=== PATIENT | female | born 1955 | race Asian ===

== ENCOUNTER 2017-12-01 05:47 | Inpatient (IN) | payer OTHER ==
[2017-12-01] MEDS: HIP PAIN COCKTAIL (CEFUROXIME) INJ ×2 (06:00→08:36)
[2017-12-01] MEDS: DEXAMETHASONE 4 MG/ML 1 ML INJ IV (06:27)
[2017-12-01] MEDS: ACETAMINOPHEN 1000MG/100ML IV 100 ML IVPB (06:27)
[2017-12-01] MEDS: ONDANSETRON 4 MG INJ IV ×6 (06:27→21:06)
[2017-12-01] MEDS: oxyCODONE (CR) 10 MG TAB [oxyCONTIN] PO (06:28)
[2017-12-01] MEDS: LACTATED RINGER'S 1,000 ML IV* (06:34)
[2017-12-01] MEDS: LANSOPRAZOLE 30 MG CAP PO (06:44)
[2017-12-01] MEDS ORDERED: HYDROmorphONE 1 MG/5 ML IV SYRINGE IV ×2 (07:30)
[2017-12-01] MEDS ORDERED: NALOXONE (0.4 MG/ML) INJ IV (07:30)
[2017-12-01] MEDS ORDERED: ALBUTEROL 0.083% (NEB) 2.5 MG/3 ML AMP HHN (07:30)
[2017-12-01] MEDS ORDERED: oxyCODONE 5 MG TAB PO (07:30)
[2017-12-01] MEDS ORDERED: METOCLOPRAMIDE 10 MG INJ IV (07:30)
[2017-12-01] MEDS ORDERED: DIPHENHYDRAMINE 50 MG INJ IV ×2 (07:30)
[2017-12-01] MEDS ORDERED: FENTAnyl 50 MCG/ML VIAL IV ×2 (07:30)
[2017-12-01] MEDS ORDERED: BETHANECHOL 25 MG TAB PO (07:30)
[2017-12-01] MEDS ORDERED: NA PHOSPHATE/BIPHOS 133 ML ENEMA PR (07:30)
[2017-12-01] MEDS ORDERED: SENNA/DOCUSATE NA (8.6MG/50MG) TAB PO (07:30)
[2017-12-01] MEDS ORDERED: morphine SULFATE/PF (10 MG/10 ML) INJ (07:33)
[2017-12-01] MEDS ORDERED: MIDAZOLAM 1 MG/ML 2 ML INJ (07:33)
[2017-12-01] MEDS ORDERED: BUPIVACAINE 0.75%/DEXT (SPINAL) 2 ML INJ (07:33)
[2017-12-01] MEDS ORDERED: PHENYLephrine (100 MCG/ML) 5ML SYG (07:48)
[2017-12-01] MEDS: CEFAZOLIN 2 GM/50 ML (PMX) 50 ML IVPB (07:51)
[2017-12-01] MEDS: TRANEXAMIC ACID 1,000 MG in NS 100 ML PRE-OP X1 IVPB (08:00)
[2017-12-01] MEDS ORDERED: SUCCINYLCHOLINE CHLORIDE 100 MG/5 ML SYG IV (08:01)
[2017-12-01] MEDS ORDERED: ROCURONIUM 50 MG INJ (08:01)
[2017-12-01] MEDS ORDERED: PROPOFOL 20 ML (08:01)
[2017-12-01] MEDS ORDERED: CEFAZOLIN 1 GM INJ (08:01)
[2017-12-01] MEDS ORDERED: SUGAMMADEX SODIUM 200 MG/2 ML VIAL IV (08:04)
[2017-12-01] MEDS ORDERED: LIDOCAINE 1% (MDV) 20 ML INJ (08:04)
[2017-12-01] MEDS: POLYMYXIN B 500000 UNIT INJ (08:36)
[2017-12-01] MEDS: BACITRACIN 50000 UNITS INJ IRR (08:36)
[2017-12-01] MEDS: TRANEXAMIC ACID 1,000 MG in NS 100 ML INTRA-OP X1 IVPB ×2 (08:38→09:15)
[2017-12-01] MEDS: ASPIRIN (EC) 325 MG TAB PO ×3 (09:00→20:18)
[2017-12-01] MEDS: GABAPENTIN 100 MG CAP PO ×2 (09:00→20:17)
[2017-12-01] MEDS ORDERED: DOCUSATE SODIUM 100 MG CAP PO (10:38)
[2017-12-01] MEDS ORDERED: CEFAZOLIN 1 GM/50 ML (PMX) 50 ML IVPB (10:39)
[2017-12-01] MEDS ORDERED: ASPIRIN (EC) 325 MG TAB PO (10:39)
[2017-12-01] MEDS: DOCUSATE SODIUM 100 MG CAP PO (11:03)
[2017-12-01] MEDS: CEFAZOLIN 1 GM/50 ML (PMX) 50 ML IVPB ×3 (11:03→23:39)
[2017-12-01] MEDS: MEPERIDINE 25 MG INJ IV (11:04)
[2017-12-01] MEDS: SOD CHLORIDE 0.9% 1,000 ML IV ×2 (12:03→16:10)
[2017-12-02] MEDS: SOD CHLORIDE 0.9% 1,000 ML IV ×2 (05:16→19:56)
[2017-12-02 05:45] LABS: ADD MAN DIFF? NO
[2017-12-02 05:57] LABS: WHITE BLOOD COUNT 6.8 10^3/ul (4.8-10.8)
[2017-12-02 05:57] LABS: BASOPHILS % 0.1 % (0.0-2.0); EOSINOPHILS % 0.1 % (0.0-7.0); HEMATOCRIT 31.5 % (37.0-47.0); HEMOGLOBIN 10.8 g/dl (12.0-16.0); LYMPHOCYTES # 1.6 10^3/ul (0.8-2.9); MEAN CORPUSCULAR HGB CONC 34.3 g/dl (32.0-37.0); MEAN CORPUSCULAR VOLUME 96.3 fl (82.0-101.0); MEAN PLATELET VOLUME 10.2 fl (7.4-10.4); MONOCYTE # 0.4 10^3/ul (0.3-0.9); MONOCYTES % 5.6 % (0.0-11.0); NEUTROPHIL # 4.8 10^3/ul (1.6-7.5); NEUTROPHILS % 71.1 % (39.0-77.0); PLATELET COUNT 192 10^3/UL (140-415); RED BLOOD COUNT 3.27 10^6/ul (4.20-5.40); RED CELL DISTRIBUTION WIDTH 11.7 % (11.5-14.5)
[2017-12-02 06:12] LABS: HEMOGLOBIN A1C 5.4 % (0-5.9)
[2017-12-02 06:43] LABS: CHOL/HDL RATIO 2.5 RATIO; CHOLESTEROL 115 mg/dl (100-200); HDL CHOLESTEROL 46 mg/dl (35-98); LDL CHOLESTEROL,CALCULATED 58 mg/dl; TRIGLYCERIDES 54 mg/dl (0-149)
[2017-12-02 07:02] LABS: THYROID STIMULATING HORMONE 0.732 MIU/L (0.465-4.680)
[2017-12-02 07:05] LABS: ANION GAP 10 (8-16); BLOOD UREA NITROGEN 11 mg/dl (7-20); CALCIUM 8.2 mg/dl (8.4-10.2); CARBON DIOXIDE 27 mmol/L (21-31); CHLORIDE 110 mmol/L (97-110); CREATININE 0.69 mg/dl (0.44-1.00); GLUCOSE 96 mg/dl (70-220); POTASSIUM 4.3 mmol/L (3.5-5.1); SODIUM 143 mmol/L (135-144)
[2017-12-02] MEDS: FERROUS FUMARATE (SR) TAB PO ×2 (08:41→20:05)
[2017-12-02] MEDS: ASPIRIN (EC) 325 MG TAB PO ×2 (08:42→20:05)
[2017-12-02] MEDS: CELECOXIB 200 MG CAP PO ×2 (08:42→20:05)
[2017-12-02] MEDS: DOCUSATE SODIUM 100 MG CAP PO ×2 (08:42→20:05)
[2017-12-02] MEDS: GABAPENTIN 100 MG CAP PO ×2 (08:42→20:05)
[2017-12-02] MEDS: oxyCODONE 5 MG TAB PO ×5 (08:43→22:24)
[2017-12-02] MEDS: ALPRAZOLAM 0.25 MG TAB PO (14:02)
[2017-12-02] MEDS: ONDANSETRON 4 MG INJ IV ×2 (15:44→21:28)
[2017-12-03] MEDS: oxyCODONE 5 MG TAB PO ×4 (02:39→15:48)
[2017-12-03] MEDS: ONDANSETRON 4 MG INJ IV ×2 (03:05→09:56)
[2017-12-03 05:06] LABS: ADD MAN DIFF? NO
[2017-12-03 05:09] LABS: BASOPHILS % 0.3 % (0.0-2.0); EOSINOPHILS % 0.3 % (0.0-7.0); HEMATOCRIT 31.8 % (37.0-47.0); HEMOGLOBIN 10.9 g/dl (12.0-16.0); LYMPHOCYTES # 1.6 10^3/ul (0.8-2.9); LYMPHOCYTES % 24.7 % (15.0-51.0); MEAN CORPUSCULAR HEMOGLOBIN 32.5 pg (29.0-33.0); MEAN CORPUSCULAR HGB CONC 34.3 g/dl (32.0-37.0); MEAN CORPUSCULAR VOLUME 94.9 fl (82.0-101.0); MEAN PLATELET VOLUME 10.1 fl (7.4-10.4); MONOCYTE # 0.5 10^3/ul (0.3-0.9); MONOCYTES % 7.4 % (0.0-11.0); NEUTROPHIL # 4.3 10^3/ul (1.6-7.5); PLATELET COUNT 174 10^3/UL (140-415); RED BLOOD COUNT 3.35 10^6/ul (4.20-5.40); RED CELL DISTRIBUTION WIDTH 11.3 % (11.5-14.5)
[2017-12-03 05:09] LABS: WHITE BLOOD COUNT 6.5 10^3/ul (4.8-10.8)
[2017-12-03 05:32] LABS: ANION GAP 9 (8-16); BLOOD UREA NITROGEN 11 mg/dl (7-20); CALCIUM 8.2 mg/dl (8.4-10.2); CARBON DIOXIDE 29 mmol/L (21-31); CHLORIDE 105 mmol/L (97-110); CREATININE 0.74 mg/dl (0.44-1.00); GLUCOSE 119 mg/dl (70-220); SODIUM 139 mmol/L (135-144)
[2017-12-03] MEDS: PANTOPRAZOLE (EC) 40 MG TAB PO (06:16)
[2017-12-03] MEDS: ASPIRIN (EC) 325 MG TAB PO ×2 (08:44→20:41)
[2017-12-03] MEDS: FERROUS FUMARATE (SR) TAB PO ×2 (08:44→20:36)
[2017-12-03] MEDS: CELECOXIB 200 MG CAP PO ×3 (08:44→20:36)
[2017-12-03] MEDS: GABAPENTIN 100 MG CAP PO ×2 (08:44→20:36)
[2017-12-03] MEDS: DOCUSATE SODIUM 100 MG CAP PO ×2 (08:44→20:36)
[2017-12-03] MEDS: METOCLOPRAMIDE 10 MG INJ IV ×3 (15:39→23:51)
[2017-12-04 05:26] LABS: ADD MAN DIFF? NO
[2017-12-04 05:37] LABS: BASOPHILS % 0.4 % (0.0-2.0); EOSINOPHILS # 0.1 10^3/ul (0.0-0.5); EOSINOPHILS % 2.4 % (0.0-7.0); HEMOGLOBIN 10.6 g/dl (12.0-16.0); LYMPHOCYTES # 1.8 10^3/ul (0.8-2.9); LYMPHOCYTES % 32.4 % (15.0-51.0); MEAN CORPUSCULAR HEMOGLOBIN 32.5 pg (29.0-33.0); MEAN CORPUSCULAR HGB CONC 34.2 g/dl (32.0-37.0); MEAN CORPUSCULAR VOLUME 95.1 fl (82.0-101.0); MEAN PLATELET VOLUME 9.9 fl (7.4-10.4); MONOCYTE # 0.4 10^3/ul (0.3-0.9); MONOCYTES % 7.6 % (0.0-11.0); NEUTROPHIL # 3.2 10^3/ul (1.6-7.5); PLATELET COUNT 162 10^3/UL (140-415); RED BLOOD COUNT 3.26 10^6/ul (4.20-5.40); RED CELL DISTRIBUTION WIDTH 11.3 % (11.5-14.5)
[2017-12-04 05:37] LABS: WHITE BLOOD COUNT 5.5 10^3/ul (4.8-10.8)
[2017-12-04] MEDS: METOCLOPRAMIDE 10 MG INJ IV ×2 (05:39→12:00)
[2017-12-04] MEDS: PANTOPRAZOLE (EC) 40 MG TAB PO (05:40)
[2017-12-04 06:03] LABS: ANION GAP 8 (8-16); BLOOD UREA NITROGEN 8 mg/dl (7-20); CARBON DIOXIDE 29 mmol/L (21-31); CHLORIDE 108 mmol/L (97-110); CREATININE 0.67 mg/dl (0.44-1.00); GLUCOSE 105 mg/dl (70-220); POTASSIUM 3.6 mmol/L (3.5-5.1); SODIUM 141 mmol/L (135-144)
[2017-12-04] MEDS: GABAPENTIN 100 MG CAP PO (08:13)
[2017-12-04] MEDS: FERROUS FUMARATE (SR) TAB PO (08:13)
[2017-12-04] MEDS: DOCUSATE SODIUM 100 MG CAP PO (08:13)
[2017-12-04] MEDS: ASPIRIN (EC) 325 MG TAB PO (08:13)
[2017-12-04] MEDS: CELECOXIB 200 MG CAP PO (08:13)
[2017-12-04] MEDS: oxyCODONE 5 MG TAB PO (08:16)
[2017-12-04] MEDS: BISACODYL 10 MG SUPP PR (10:28)
[2017-12-04] MEDS: NA PHOSPHATE/BIPHOS 133 ML ENEMA PR (10:36)
[2017-12-04] MEDS: MAGNESIUM HYDROXIDE 30ML CUP PO (11:11)
== END 2017-12-04 15:15 | disposition home health service (06) | DRG 470 ==
LOC: REC 05:47 → MS1 11:28
PROC: 0SRC069 Replacement of Right Knee Joint with Oxidized Zirconium on Polyethylene Synthetic Substitute, Cemented, Open Approach (ICD-10-PCS; principal; 2017-12-01 07:30)
DX: M17.11 Unilateral primary osteoarthritis, right knee (principal); M96.89 Other intraoperative and postprocedural complications and disorders of the musculoskeletal system; M96.671 Fracture of tibia or fibula following insertion of orthopedic implant, joint prosthesis, or bone plate, right leg; D62 Acute posthemorrhagic anemia; F41.9 Anxiety disorder, unspecified; K59.00 Constipation, unspecified
CPT/HCPCS: 73560; 80048; 80061; 83036; 83735; 84443; 85025; 87081; 87086; 88304; 88311; 97110; 97116; 97161; 97166; 97530; 97535